=== PATIENT | female | born 1935 | race Caucasian/White ===

== ENCOUNTER → 2017-01-12 | Outpatient (CLI) | payer OTHER ==
[~2017-01-12] MED LIST: ALBUTEROL SULFAT4 MG PO; ASPIRIN EC81 M1 PO; ATORVASTATIN CA20 MG PO; AUGMENTIN 875875 MG PO; BENICAR PO; BENICAR20 MG PO; CALCIUM 500 +1 EAC5 PO; CALCIUM PO; CEFTIN500 MG PO; CIPROFLOXACIN500 M1 PO; COZAAR; COZAAR100 MG PO; FISH OIL 1,0001 EAC5 PO; FISHOIL PO; FLAGYL500 MG PO; FLAXSEED OIL1000 MG PO; HYDROCODONE-AP1 EAC6 PO; IMDUR 60 MG TAB60 M1 PO; LEVOTHYROXIN0.112 M1 PO; LEVOXYL100 MCG PO; LOPRESSOR; LOPRESSOR 50 MG50 M1 PO; METOPROLOL SUCC25 M1 PO; METOPROLOL TART25 MG PO; MOBIC7.5 MG PO; MULTIVITAMINS PO; NORCO 5-325 TA1 EACH PO; SIMVASTATIN80 MG PO; VENTOLIN HFA 1818 GM PO; VITAMIN E400 UNIT PO
== END ==
LOC: RAD 10:54
DX: M48.06 Spinal stenosis, lumbar region (principal); M25.78 Osteophyte, vertebrae; M47.816 Spondylosis without myelopathy or radiculopathy, lumbar region; M25.569 Pain in unspecified knee; M54.9 Dorsalgia, unspecified

== ENCOUNTER → 2017-03-17 | Outpatient (CLI) | payer OTHER | LOC: RAD 13:04 | DX: M47.896 Other spondylosis, lumbar region (principal) ==

== ENCOUNTER 2018-04-20 09:06 | Inpatient (IN) | payer OTHER ==
[2018-04-20] VITALS (7 sets, daily range): BP systolic 86–135; BP diastolic 50–70
[~2018-04-20] VITALS: Ht 154.9 cm; Wt 65.8 kg
--- NOTE | ~2018-04-20 | EKG ---
[address] [place] [address] ELECTROCARDIOGRAM REPORT Name: ENOC ALMONTE Room #: 210-P [facility] IN [facility].#: [id number] Admission: 04/20/18 Attend Phys: Gomez Wu MD Discharge: Date of : 35 Report #: [id number] THIS REPORT FOR: //name// [facility] ED Test Date: 2018-04-20 Test Time: 09:00:09 Pat Name: ENOC ALMONTE Department: Room: Gender: F Content Director: [facility] : 1935 Requested By: Fredy Ferreira Order Number: [id number] MD: Dheeraj Dodge Measurements Intervals [place] Rate: 154 P: OK: QRS: -24 QRSD: 126 T: 111 QT: 305 QTc: 488 Interpretive Statements Atrial fibrillation with a rapid ventricular response Left bundle branch block Baseline wander Compared to ECG 09/13/2008 11:24:22 Atrial fibrillation has replaced sinus rhythm Electronically Signed On 04-20-2018 16:48:55 CDT by Dheeraj Dodge [email or web address] <ELECTRONICALLY SIGNED> By: Dheeraj Dodge MD, [facility] 04/20/18 1648 0900 09 Dheeraj Dodge MD, [facility] /EPI
[2018-04-20 09:39] LABS: ABSOLUTE NEUTROPHILS 5.7 thou/uL (1.4-8.2); BASOPHILS 0.5 % (0.0-2.0); EOSINOPHILS 0.2 % (0.0-3.0); HEMATOCRIT 39.8 % (37.0-47.0); HEMOGLOBIN 13.4 gm/dL (12.0-15.0); LYMPHOCYTES 21.4 % (24.0-44.0); MCH 30.7 pg (26.0-34.0); MCHC 33.6 g/dL (28.0-37.0); MCV 91.3 fL (80.0-100.0); MONOCYTES 8.4 % (1.0-8.0); PLATELET COUNT 260 thou/uL (150-400); POLYS 69.5 % (36.0-66.0); RBC 4.36 mil/uL (4.20-5.00); WBC 8.1 thou/uL (4.0-11.0)
[2018-04-20 09:47] LABS: ANION GAP 11 mmol/L (7-16); BUN 28 mg/dL (7-18); CALCIUM 9.5 mg/dL (8.5-10.1); CHLORIDE 102 mmol/L (98-107); CO2 25 mmol/L (21-32); CREATININE 1.3 mg/dL (0.6-1.0); GLUCOSE 155 mg/dL (74-106); POTASSIUM 4.8 mmol/L (3.5-5.1); SODIUM 138 mmol/L (136-145)
[2018-04-20 09:53] LABS: APTT 28.7 Seconds (24.5-32.8); PROTIME 9.8 Seconds (9.3-11.4)
[2018-04-20 09:55] LABS: ALBUMIN 3.5 g/dL (3.4-5.0); SGOT 21 U/L (15-37); SGPT 24 U/L (30-65); TOTAL BILIRUBIN 0.5 mg/dL (<0.1-1.0); TOTAL PROTEIN 6.9 g/dL (6.4-8.2); TROPONIN-I <0.06 ng/mL (<0.06)
[2018-04-21 00:38] VITALS: BP 94/45
[2018-04-21 04:15] VITALS: BP 111/59
[2018-04-21 04:19] LABS: ANION GAP 7 mmol/L (7-16); BUN 25 mg/dL (7-18); CALCIUM 9.2 mg/dL (8.5-10.1); CHLORIDE 108 mmol/L (98-107); CO2 24 mmol/L (21-32); CREATININE 1.1 mg/dL (0.6-1.0); GLUCOSE 95 mg/dL (74-106); POTASSIUM 4.8 mmol/L (3.5-5.1); SODIUM 139 mmol/L (136-145); TROPONIN-I <0.06 ng/mL (<0.06)
[2018-04-21 07:12] VITALS: BP 109/53
[2018-04-21] MEDS ORDERED: ELIQUIS5 MG PO (09:01)
[2018-04-21] MEDS ORDERED: CARDIZEM CD240 MG PO (09:01)
[2018-04-21] MEDS ORDERED: SYNTHROID75 MCG PO (10:56)
[2018-04-21 11:09] VITALS: BP 109/53
== END 2018-04-21 11:40 | disposition home or self-care (01) | DRG 309 ==
LOC: ER 09:06 → EROBS 10:12 → 2N 10:12 → ENTRNSPT 04-21 11:28 → EDTRNSPTSTS 04-21 11:31 → 2N 04-21 11:40
PROVIDERS: Emergency Medicine
DX: I48.91 Unspecified atrial fibrillation (principal); N17.9 Acute kidney failure, unspecified; I10 Essential (primary) hypertension; E03.9 Hypothyroidism, unspecified; I95.9 Hypotension, unspecified; T38.1X5A Adverse effect of thyroid hormones and substitutes, initial encounter; K57.90 Diverticulosis of intestine, part unspecified, without perforation or abscess without bleeding; J45.909 Unspecified asthma, uncomplicated; Z98.42 Cataract extraction status, left eye; Z98.41 Cataract extraction status, right eye; Z90.49 Acquired absence of other specified parts of digestive tract; Z88.1 Allergy status to other antibiotic agents; Z88.8 Allergy status to other drugs, medicaments and biological substances; Y92.89 Other specified places as the place of occurrence of the external cause; Z79.82 Long term (current) use of aspirin; Z79.899 Other long term (current) drug therapy
CPT/HCPCS: 10194

== ENCOUNTER → 2020-09-26 | Outpatient (CLI) | payer OTHER ==
[~2020-09-26] MED LIST changes: +CARDIZEM CD240 MG PO; +ELIQUIS5 MG PO; +SYNTHROID75 MCG PO
== END ==
LOC: SJCVC 13:43
PROVIDERS: ATTEND Internal Medicine
DX: R94.31 Abnormal electrocardiogram [ECG] [EKG] (principal); I44.7 Left bundle-branch block, unspecified; I48.0 Paroxysmal atrial fibrillation; I10 Essential (primary) hypertension; E78.5 Hyperlipidemia, unspecified; Z79.01 Long term (current) use of anticoagulants

== ENCOUNTER → 2020-12-12 | Outpatient (CLI) | payer OTHER | LOC: SJCVCIMAG 08:28 | PROVIDERS: ATTEND Internal Medicine | DX: I08.0 Rheumatic disorders of both mitral and aortic valves (principal); I44.7 Left bundle-branch block, unspecified; I49.3 Ventricular premature depolarization; I48.91 Unspecified atrial fibrillation; I25.10 Atherosclerotic heart disease of native coronary artery without angina pectoris; R94.31 Abnormal electrocardiogram [ECG] [EKG]; I10 Essential (primary) hypertension; Z79.899 Other long term (current) drug therapy ==

== ENCOUNTER → 2021-04-01 | Outpatient (CLI) | payer OTHER | LOC: SJCVC 11:13 | PROVIDERS: ATTEND Internal Medicine | DX: R94.31 Abnormal electrocardiogram [ECG] [EKG] (principal); I44.7 Left bundle-branch block, unspecified; I48.0 Paroxysmal atrial fibrillation; I10 Essential (primary) hypertension; E78.5 Hyperlipidemia, unspecified; E03.9 Hypothyroidism, unspecified; J45.909 Unspecified asthma, uncomplicated; M81.0 Age-related osteoporosis without current pathological fracture; Z79.01 Long term (current) use of anticoagulants; Z79.899 Other long term (current) drug therapy; Z88.8 Allergy status to other drugs, medicaments and biological substances; Z90.49 Acquired absence of other specified parts of digestive tract ==

== ENCOUNTER → 2021-10-01 | Outpatient (CLI) | payer OTHER | LOC: SJCVC 12:52 | PROVIDERS: ATTEND Internal Medicine | DX: I44.7 Left bundle-branch block, unspecified (principal); R94.31 Abnormal electrocardiogram [ECG] [EKG]; I48.0 Paroxysmal atrial fibrillation; I10 Essential (primary) hypertension; E78.5 Hyperlipidemia, unspecified; J45.909 Unspecified asthma, uncomplicated; M81.0 Age-related osteoporosis without current pathological fracture; Z79.899 Other long term (current) drug therapy; Z98.890 Other specified postprocedural states; Z88.1 Allergy status to other antibiotic agents; Z88.2 Allergy status to sulfonamides; Z88.8 Allergy status to other drugs, medicaments and biological substances; Z79.01 Long term (current) use of anticoagulants; Z95.5 Presence of coronary angioplasty implant and graft ==